=== PATIENT | female | born 2000 | race Caucasian/White ===

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

== ENCOUNTER 2019-09-08 17:42 | Emergency (ER) | payer OTHER ==
[2019-09-08 19:07] VITALS: BP 102/74
--- NOTE | 2019-09-08 19:16 | UC ---
Throat Pain/Nasal Bhavin HPI - HPI Summary HPI Summary: Fever of 102 last evening which "broke" this am. Continues to feel lightheaded , sore throat X2 days, body aches, watery eyes, cold chills. States she feels better today but weak. Hurts to swallow. PT states that she feels like her glands are swollen. - History of Current Complaint Chief Complaint: UCGeneralIllness Stated Complaint: THROAT COMPLAINT,DIZZINESS Time Seen by Provider: 09/08/19 19:03 Hx Obtained From: Patient Hx Last Menstrual Period: 09/07/2019 Pain Intensity: 2 Pain Scale Used: 0-10 Numeric Associated Signs & Symptoms: Negative: Dysphagia - Allergies/Home Medications Allergies/Adverse Reactions: Allergies Allergy/AdvReac Type Severity Reaction Status Date / Time No Known Allergies Allergy Verified 12/24/18 15:55 PMH/Surg Hx/FS Hx/Imm Hx - Additional Past Medical History Additional PMH: NO CHRONIC ILLNESS Previously Healthy: Yes - Surgical History Surgical History: Yes Surgery Procedure, Year, and Place: 2015 - Family History Known Family History: Negative: Cardiac Disease, Hypertension - Social History Alcohol Use: None Substance Use Type: None Smoking Status (MU): Never Smoked Tobacco Review of Systems All Other Systems Reviewed And Are Negative: Yes Constitutional: Positive: Fever, Chills, Fatigue, Other - DIZZY Skin: Negative: Rash Eyes: Negative: Drainage ENT: Positive: Sore Throat, Sinus Congestion. Negative: Ear Ache Respiratory: Positive: Negative Cardiovascular: Positive: Negative Musculoskeletal: Positive: Myalgia Neurological: Positive: Headache, Weakness Physical Exam Triage Information Reviewed: Yes Appearance: Well-Appearing Vital Signs: Initial Vital Signs Temp 99.1 F 09/08/19 18:54 Pulse 108 09/08/19 18:54 Resp 20 09/08/19 18:54 BP 102/74 09/08/19 18:54 Pulse Ox 100 09/08/19 18:54 Vital Signs Reviewed: Yes ENT: Positive: Pharynx normal, TMs normal, Uvula midline Neck: Positive: Supple, Nontender, No Lymphadenopathy Respiratory Exam: Normal Cardiovascular Exam: Normal Neurological: Positive: Alert Psychological: Positive: Age Appropriate Behavior Skin: Negative: Rashes Throat Pain/Nasal Course/Dx - Course Course Of Treatment: body aches, fever, and sore throat for approx 5 days. did not go to classes. denies sick contacts. nothing makes it better/worse. RAPID FLU NEG. RAPID STREP NEG. Exam unremarkable. ADvised pushing fluids and rest for this viral illness. - Differential Dx/Diagnosis Differential Diagnosis/HQI/PQRI: Pharyngitis, URI Provider Diagnosis: Viral illness Discharge ED - Sign-Out/Discharge Documenting (check all that apply): Patient Departure All imaging exams completed and their final reports reviewed: No Studies - Discharge Plan Condition: Good Disposition: HOME Patient Education Materials: Viral Syndrome (ED) Forms: *School Release Referrals: No Primary Care Phys,NOPCP [Primary Care Provider] - Additional Instructions: Please continue fluids - Billing Disposition and Condition Condition: GOOD Disposition: Home
[2019-09-08 20:02] LABS: Influenza A Molecular NEGATIVE (Negative); Influenza B Molecular NEGATIVE (Negative)
== END 2019-09-08 20:10 | disposition home or self-care (01) ==
LOC: UCCORT 17:42
DX: B34.9 Viral infection, unspecified (principal); R42 Dizziness and giddiness; J02.9 Acute pharyngitis, unspecified; H57.89 Other specified disorders of eye and adnexa; R09.81 Nasal congestion
CPT/HCPCS: 87651; 99211; G0463